=== PATIENT | female | born 1985 | race Caucasian/White ===

== ENCOUNTER 2022-07-26 13:12 | Emergency (ER) | payer MEDICAID ==
[~2022-07-26] VITALS: Ht 160 cm; Wt 75.0 kg
[2022-07-26 13:50] VITALS: BP 113/59
[2022-07-26] MEDS ORDERED: LIDOcaine 1% W/epiNEPHrine 1:100,000 20ml vial SQ ONE (15:10)
[2022-07-26] MEDS ORDERED: LIDOCAINE 1%/EPI 1:100,000 inj. 10 ML multi-dose vial SQ ONE (15:20)
== END 2022-07-26 16:32 | disposition home or self-care (01) ==
LOC: ER 13:13
DX: L72.3 Sebaceous cyst (principal); H92.02 Otalgia, left ear
CPT/HCPCS: 10120; 99282; 99285; A6449

== ENCOUNTER 2025-02-24 13:01 | Emergency (ER) | payer MEDICAID ==
[~2025-02-24] VITALS: Ht 160 cm; Wt 62.7 kg
[2025-02-24 13:09] VITALS: TEMP 97
--- NOTE | 2025-02-24 13:21 | ELECTROCARDIOGRAPH REPORT ---
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 Oziel Giordano Measurements Intervals [place] Rate: 64 P: 31 WA: 147 QRS: 50 QRSD: 90 T: 60 QT: 413 QTc: 426 Interpretive Statements Sinus rhythm Low voltage, extremity leads Electronically Signed On 02-24-2025 15:47:[address] Oziel Giordano Please click the below link to view image of tracing.
[2025-02-24 14:22] LABS: BASOPHILS % (AUTO) 0.5 % (0-1); EOSINOPHILS # (AUTO) 0.2 X10'3 (0-0.9); EOSINOPHILS % (AUTO) 3.6 % (0-6); HEMATOCRIT 37.9 % (35.0-45.0); HEMOGLOBIN 12.7 g/dl (12.0-16.0); LYMPHOCYTES # (AUTO) 2.3 X10'3 (1.1-4.8); LYMPHOCYTES % (AUTO) 38.7 % (21-51); MEAN CORPUSCULAR HEMOGLOBIN 30.7 PG (27.0-31.0); MEAN CORPUSCULAR HGB CONC 33.5 g/dL (33.0-36.5); MEAN CORPUSCULAR VOLUME 91.6 FL (78-98); MEAN PLATELET VOLUME 8.6 FL (7.4-10.4); MONOCYTES # (AUTO) 0.3 X10'3 (0-0.9); MONOCYTES % (AUTO) 5.9 % (2-12); NEUTROPHILS % (AUTO) 51.3 % (42-75); PLATELET COUNT 249 X10'3 (140-440); RED BLOOD COUNT 4.14 X10'6 (4.20-5.60); RED CELL DISTRIBUTION WIDTH 13.2 % (11.5-14.5); WHITE BLOOD COUNT 5.9 X10'3 (4.5-11.0)
[2025-02-24 14:52] LABS: ALANINE AMINOTRANSFERASE 24 U/L (12-78); ALBUMIN/GLOBULIN RATIO 1.4 (1.1-1.5); ALKALINE PHOSPHATASE 40 IU/L (46-116); ANION GAP 10 (8-16); ASPARTATE AMINO TRANSFERASE 16 U/L (10-37); BILIRUBIN,TOTAL 0.3 MG/DL (0.1-1.0); BLOOD UREA NITROGEN 9 MG/DL (7-18); BUN/CREATININE RATIO 14.3 (10.0-20.0); CALCIUM 8.6 MG/DL (8.5-10.1); CHLORIDE 106 MMOL/L (99-107); CREATININE 0.63 MG/DL (0.40-0.90); GLUCOSE 81 MG/DL (70-104); POTASSIUM 3.6 MMOL/L (3.5-5.1); SODIUM 142 MMOL/L (135-145); TOTAL CARBON DIOXIDE 26.5 MMOL/L (24-32); TOTAL PROTEIN 6.9 G/DL (6.4-8.2); eCRCL 98 ML/MIN; eGFR > 90 ML/MIN
[2025-02-24 18:42] VITALS: BP 126/65; PULSE 87; RESP 15; O2SAT 99
--- NOTE | 2025-02-24 19:00 | Physician Documentation ---
History of Present Illness ~ Chief Complaint: Arm Pain Stated Complaint: ARM PAIN Time Seen by MD: 14:16 Primary Medical Doctor: NONE Mode of Arrival: Ambulatory HPI Patient is seen today with complaints of pain of her left upper arm that is been off and on over the last couple of days. Patient also states she just has not quite felt very well over the last few days. Patient denies any centralized chest pain or reproducible chest pain or recent injury. Patient denies any shortness of breath or abdominal pain or nausea, vomiting, diarrhea. Patient has no other concern or complaint at this time. Medication Reconciliation Allergies: Coded Allergies: amoxicillin (Verified Allergy, Severe, 02/24/25) hives Past Medical History Past Medical History: *DERMATOLOGY* Past Surgical History: noncontributory Review of Systems Constitutional: Denies: chills, fever, weakness Eyes: Denies: pain, blurred vision ENT: Denies: ear pain, nose pain, throat pain, mouth pain Respiratory: Denies: cough, shortness of breath Cardiovascular: Denies: chest pain, palpitations Gastrointestinal: Denies: abdominal pain, nausea, vomiting Genitourinary: Denies: burning, dysuria Female Genitalia: Denies: vaginal discharge, pelvic pain Neurological: Denies: headache, dizziness Musculoskeletal: Denies: pain, swelling Integumentary: Denies: rash, lesions Allergic/Immunologic: Denies: hives, itching Hematologic/Lymphatic: Denies: no symptoms reported Psychiatric: Denies: depression, anxiety Physical Exam Vital Signs: Temperature: 97.0, Heart Rate: 87, Respiratory Rate: 15, BP: 126/65, Pulse Oximetry: 99, Weight: 62.700 Physical Exam General: Awake and Alert, no acute distress. HEENT: Conjunctiva pink, Sclera clear, Mucus Membranes moist. Neck: Supple without masses and tenderness. Resp: Unlabored. Lungs clear to auscultation bilaterally. Heart: Regular Rate and rhythm, normal S1 and S2 without murmur, rub or gallop. Abdomen: Soft and non tender no organomegaly Extremities: No cyanosis,clubbing or edema. Skin: Warm and Dry. Progress Results/Orders Results/Orders Vital Signs 02/24/25 02/24/25 02/24/25 13:09 18:42 18:42 Temp 97.0 Pulse 65 87 Resp 16 15 B/P (MAP) 108/57 126/65 (85) Pulse Ox 98 99 98 O2 Delivery Room Air* O2 Flow Rate 0 FiO2 21 Laboratory Tests Test 02/24/25 13:38 02/24/25 15:52 White Blood Count 5.9 Red Blood Count 4.14 L Hemoglobin 12.7 Hematocrit 37.9 Mean Corpuscular Volume 91.6 Mean Corpuscular Hemoglobin 30.7 Mean Corpuscular Hemoglobin Concent 33.5 Red Cell Distribution Width 13.2 Platelet Count 249 Mean Platelet Volume 8.6 Neutrophils (%) (Auto) 51.3 Lymphocytes (%) (Auto) 38.7 Monocytes (%) (Auto) 5.9 Eosinophils (%) (Auto) 3.6 Basophils (%) (Auto) 0.5 Neutrophils # (Auto) 3.0 Lymphocytes # (Auto) 2.3 Monocytes # (Auto) 0.3 Eosinophils # (Auto) 0.2 Basophils # (Auto) 0.0 CBC Comment Sodium Level 142 Potassium Level 3.6 Chloride Level 106 Carbon Dioxide Level 26.5 Anion Gap 10 Blood Urea Nitrogen 9 Creatinine 0.63 Estimated GFR/1.73 m2 > 90 BUN/Creatinine Ratio 14.3 Glucose Level 81 Calcium Level 8.6 Total Bilirubin 0.3 Aspartate Amino Transf (AST/SGOT) 16 Alanine Aminotransferase (ALT/SGPT) 24 Alkaline Phosphatase 40 L Troponin I High Sensitivity 4 4 Total Protein 6.9 Albumin 4.0 Globulin 2.9 Albumin/Globulin Ratio 1.4 Chemistry Comments Troponin I High Sens Percent Delta 0 Troponin I Hi Sens Absolute Change 0 EKG/XRAY/CT/US/VASC/MRI EKG : Additional Comment EKG interpreted by myself today shows normal sinus rhythm, normal rate at 64 beats per minute, no sign of ischemia and no sign of ST segment elevation, no axis deviation. Heart Score: Heart Score Response (Comments) Value History Slightly Suspicious 0 EKG Normal 0 Age <45 0 Risk Factors No known risk factors 0 Troponin Normal limit 0 Total 0 Medical Decision Making Findings Patient is seen today with complaints of pain of her left upper arm that is been off and on over the last couple of days. Patient also states she just has not quite felt very well over the last few days. Patient denies any centralized chest pain or reproducible chest pain or recent injury. Patient denies any shortness of breath or abdominal pain or nausea, vomiting, diarrhea. Patient has no other concern or complaint at this time. Patient's labs and EKG all returned unremarkable. Patient will follow up with primary care in 2-5 days if no better as needed sooner for possible referral to Cardiology for further eval and treatment and possible stress testing. Patient will return to ED with any worsening, concerning or changing symptoms. Patient will continue healthy diet and activity level as tolerated. Departure Disposition: HOME / SELF CARE / HOMELESS Impression: Primary Impression: Chest pain in adult Additional Impression: Arm pain Qualified Codes: M79.602 - Pain in left arm Condition: Stable Discharge Instructions: Muscle Strain, [id number] Additional Instructions: Patient's labs and EKG all returned unremarkable. Patient will follow up with primary care in 2-5 days if no better as needed sooner for possible referral to Cardiology for further eval and treatment and possible stress testing. Patient will return to ED with any worsening, concerning or changing symptoms. Patient will continue healthy diet and activity level as tolerated. Referrals: NO PRIMARY CARE PROVIDER (PCP) Signature Scribe Signature: No scribe Attestation: No scribe KILEY AVALOS PAC February 24, 2025 19:00
== END 2025-02-24 19:28 | disposition home or self-care (01) ==
LOC: ER 13:02
DX: R07.9 Chest pain, unspecified (principal); M79.602 Pain in left arm; Z88.1 Allergy status to other antibiotic agents
CPT/HCPCS: 36415; 80053; 84484; 85025; 93005; 99284

== ENCOUNTER 2025-07-22 04:31 | Emergency (ER) | payer MEDICAID ==
[~2025-07-22] VITALS: Ht 160 cm; Wt 61.3 kg
--- NOTE | 2025-07-22 04:58 | Physician Documentation ---
History of Present Illness ~ Chief Complaint: Back Pain Stated Complaint: RIGHT SIDED BACK PAIN Time Seen by MD: 04:57 Primary Medical Doctor: NONE HPI Patient presents to the emergency room with right-sided flank pain that began yesterday. She 1st noticed it when she was at work sitting at her computer when she got up from a chair. Pain exacerbated with movement. No dysuria. She took some ibuprofen last night before bed but woke up and could barely move. No traumas or falls. No history of kidney stones. Endorses nausea Medication Reconciliation Allergies: Coded Allergies: amoxicillin (Verified Allergy, Severe, 07/22/25) hives Scheduled Cyclobenzaprine HCl (Cyclobenzaprine HCl), 1 TAB PO HS Ibuprofen* (Motrin*), 400 MG PO Q8H Scheduled PRN Dicyclomine HCl (Dicyclomine HCl), 1 TAB PO Q6H PRN for abdominal cramps Hydrocodone Bit/Acetaminophen 5/325 MG (Paoli 5/325 MG), 1-2 TAB PO Q4-6 hours PRN for moderate or severe pain Past Medical History Past Medical History: *DERMATOLOGY* Past Surgical History: noncontributory Review of Systems ROS All review of systems negative except as per HPI Physical Exam Physical Exam Vital Signs: Temperature: 97.1, Source: Oral, Heart Rate: 74, Respiratory Rate: 16, BP: 108/84, Pulse Oximetry: 99, Weight: 61.300 Physical Exam General: Patient is awake, alert, oriented x4 in mild distress Head: Normocephalic and atraumatic. Eyes: Conjunctival normal. EOMI. PERRL. ENT: Mucous membranes moist. Neck: Supple, trachea is midline. Chest: Clear to auscultation bilaterally without rales, rhonchi, or wheezes. There is no accessory muscle use or retractions. Cardiac: RRR without murmurs, gallops, or rubs. Abd: Soft, nondistended, nontender, with normoactive bowel sounds. No guarding, rebound, or rigidity. Back: Tenderness to palpation to right flank. No rash or swelling Progress Results/Orders Results/Orders Orders - ANGELINA MCINTYRE MD Ultrasound Of Abdomen (07/22/25 09:22) Completed Orders - ANGELINA MCINTYRE MD Cbc/Diff (07/22/25 06:38) CMP (07/22/25 06:38) Ultrasound Of Abdomen (07/22/25 09:22) Vital Signs 07/22/25 07/22/25 07/22/25 07/22/25 04:49 04:58 05:13 06:12 Temp 97.1 Pulse 74 Resp 16 14 14 16 B/P (MAP) 108/84 Pulse Ox 99 07/22/25 07/22/25 08:34 10:33 Temp 97.6 Pulse 60 60 Resp 18 18 B/P (MAP) 103/65 (78) 106/58 Pulse Ox 99 99 O2 Flow Rate 0 Laboratory Tests Test 07/22/25 05:05 07/22/25 08:03 Urine Specimen Description Cln catch midstream Urine Color Yellow Urine Clarity Clear Urine pH 6.0 Urine Specific [place] 1.020 Urine Protein Negative Urine Glucose (UA) Negative Urine Ketones Negative Urine Occult Blood Negative Urine Nitrite Negative Urine Bilirubin Negative Urine Urobilinogen 0.2 Urine Leukocyte Esterase Negative Urine Culture Indicated Not ind Volume Urine Centrifuged 10 ml Urine Comment White Blood Count 5.8 Red Blood Count 4.02 L Hemoglobin 12.5 Hematocrit 36.7 Mean Corpuscular Volume 91.3 Mean Corpuscular Hemoglobin 31.1 H Mean Corpuscular Hemoglobin Concent 34.0 Red Cell Distribution Width 13.0 Platelet Count 229 Mean Platelet Volume 8.3 Neutrophils (%) (Auto) 60.6 Lymphocytes (%) (Auto) 31.4 Monocytes (%) (Auto) 5.4 Eosinophils (%) (Auto) 2.0 Basophils (%) (Auto) 0.6 Neutrophils # (Auto) 3.5 Lymphocytes # (Auto) 1.8 Monocytes # (Auto) 0.3 Eosinophils # (Auto) 0.1 Basophils # (Auto) 0.0 CBC Comment Sodium Level 142 Potassium Level 4.4 Chloride Level 111 H Carbon Dioxide Level 29.1 Anion Gap 2 L Blood Urea Nitrogen 12 Creatinine 0.75 Estimated GFR/1.73 m2 86 BUN/Creatinine Ratio 16.0 Glucose Level 95 Calcium Level 8.5 Total Bilirubin 0.5 Aspartate Amino Transf (AST/SGOT) 11 Alanine Aminotransferase (ALT/SGPT) 20 Alkaline Phosphatase 32 L Total Protein 6.5 Albumin 3.5 Globulin 3.0 Albumin/Globulin Ratio 1.2 Chemistry Comments Medical Decision Making Findings Patient presents to the emergency room with one day history of back pain as per HPI. Differentials include but are not limited to lumbago, pyelonephritis, kidney stone, aortic pathology. Dr. Tellez: Her urine is unremarkable but because of consistent pain I ordered the labs CBC and CMP and they are all well within normal range. In addition of the lab blood drawn we did the ultrasound of the gallbladder and right kidney and they are also unremarkable. I will probably let her go home with follow up instruction and pain medications. Patient does not have identifiable emergent medical condition that warrants inpatient medical care at this time. The patient is deemed safe for discharge with outpatient follow up. DISCLAIMER Inadvertent spelling and grammatical errors,inadvertent sebd teacher errors,syntax errors, grammatical errors, and spelling errors are likely due to EMR/dictation software use and do not reflect on the overall quality of patient care. Note that the electronic time recorded on this note does not necessarily reflect the actual time of the patient encounter. Departure Disposition: 01 HOME / SELF CARE / HOMELESS Impression: Primary Impression: Right upper quadrant abdominal pain Additional Impression: Acute back pain Condition: Stable Discharge Instructions: Abdominal Pain, Adult, [id number], Acute Back Pain, Adult Additional Instructions: Thank you for coming to our Emergency Department today. Please take medication as instructed and do follow up with your primary care provider as instructed for further evaluation and treatment. Please ask your nurse or provider if you have questions about your care today and do not leave until all your questions have been answered. Please use any medications given as directed and follow-up with your doctor (or the doctor you were referred to) in the next 1-3 days. Your primary care doctor can help to coordinate outpatient specialty care and provide authorization for specialty referral as needed. If you do not have a primary care doctor you may follow up at a [facility]. You may also use motrin and tylenol as needed for fever and/or pain unless instructed otherwise by your provider or nurse. Indications for more urgent follow-up have been discussed, but you may return to the Emergency Department at ANY time for any worrisome or worsening symptoms. [facility] Facilities: [facility] Facilities: [facility]: [facility] [place] Address:[address] [place] [address] [facility]: [place] Address:[address] [place] [id number] [facility]: Telemedicine Address:[address] [place] [address] [facility] Address:[address] [place] [address] Registration Billing Pharmacy Referrals [facility] Address:[address] [place] [address] Referrals: NO PRIMARY CARE PROVIDER (PCP) Prescriptions Dicyclomine HCl (Dicyclomine HCl) 20 Mg Tablet 1 TAB PO Q6H PRN for abdominal cramps, #20 TAB 0 Refills Prov: ANGELINA MCINTYRE MD 07/22/25 Ibuprofen* (Motrin*) 400 Mg Tablet 400 MG PO Q8H for PAIN, #30 TAB Prov: ANGELINA MCINTYRE MD 07/22/25 Cyclobenzaprine HCl (Cyclobenzaprine HCl) 10 Mg Tablet 1 TAB PO HS for muscle spasms, #14 TAB Prov: ANGELINA MCINTYRE MD 07/22/25 Hydrocodone Bit/Acetaminophen 5/325 MG (Paoli 5/325 MG) 5 Mg/325 Mg Tablet 1-2 TAB PO Q4-6 hours PRN for moderate or severe pain, #16 TAB Prov: ANGELINA MCINTYRE MD 07/22/25 Education Educated: Patient Educated regarding: diagnosis Signature Scribe Signature: X Attestation: CYNTHIA AVERY MD Jul 22, 2025 04:58 ANGELINA MCINTYRE MD Jul 22, 2025 10:21
[2025-07-22] MEDS: ketorolac trometh 15mg/ml vial 15 MG/ML ML IM ONE (05:13)
[2025-07-22] MEDS: ondansetron 4mg rapidly disintigrating tab PO ONE (05:13)
[2025-07-22 06:17] LABS: LEUKOCYTE ESTERASE ,URINE NEGATIVE (Neg); NITRITES, URINE NEGATIVE (Neg); OCCULT BLOOD,URINE NEGATIVE (Neg)
[2025-07-22 06:24] LABS: UA COLLECTION TYPE CLN CATCH MIDSTREAM
[2025-07-22 08:17] LABS: MEAN PLATELET VOLUME 8.3 FL (7.4-10.4); RED CELL DISTRIBUTION WIDTH 13.0 % (11.5-14.5)
[2025-07-22 08:23] LABS: CREATININE 0.75 MG/DL (0.40-0.90); TOTAL CARBON DIOXIDE 29.1 MMOL/L (24-32); eCRCL 82 ML/MIN; eGFR 86 ML/MIN
[2025-07-22] MEDS ORDERED: CYCL-394 PO (10:21)
[2025-07-22] MEDS ORDERED: HYDR-3965 PO (10:21)
[2025-07-22] MEDS ORDERED: IBUP-1984 PO (10:21)
[2025-07-22] MEDS ORDERED: DICY20TA17 PO (10:21)
[2025-07-22 10:33] VITALS: BP 106/58; PULSE 60; RESP 18; TEMP 97.6; O2SAT 99
--- NOTE | 2025-07-22 10:42 | RADIOLOGY REPORT ---
INDICATION: Right upper abdominal pain TECHNIQUE: Multiple real-time sonographic images of the abdomen were obtained. COMPARISON: None FINDINGS: The liver is homogenous in echogenicity. No intrahepatic biliary ductal dilatation is noted. No hepatic masses were seen. The gallbladder wall measures 0.2 cm and is normal in size. No gallstones or sludge are seen. The common duct measures 0.3 cm and is normal in size. No pericholecystic fluid is noted. The right kidney measures 11cm and is normal in size. The right renal echogenicity, contour and cortical thickness are within normal limits. No hydronephrosis or large masses are seen. The left kidney measures 10cm and is normal in size. The left renal echogenicity, contour, and cortical thickness are within normal limits. No hydronephrosis or large masses are seen. The spleen measures 9cm, within normal limits. The echogenicity is within normal limits. The pancreas is not well visualized. The visualized portions of the IVC and aorta are grossly unremarkable. IMPRESSION: Normal exam of the abdomen.
== END 2025-07-22 10:35 | disposition home or self-care (01) ==
LOC: ER 04:32
DX: R10.11 Right upper quadrant pain (principal); M54.9 Dorsalgia, unspecified; R11.0 Nausea
CPT/HCPCS: 36415; 76700; 80053; 81003; 85025; 96372; 99285; J1885